=== PATIENT | male | born 1985 | race Caucasian/White ===

== ENCOUNTER 2017-12-08 13:29 | Emergency (ER) | payer OTHER ==
--- NOTE | 2017-12-08 14:59 | ED Physician Documentation ---
PD HPI OPHTHO - Stated complaint Stated Complaint: RT EYE PX - Chief complaint Chief Complaint: Heent - History obtained from History obtained from: Patient - History of Present Illness Timing - onset: Yesterday Timing - duration: Days (1) Timing - details: Abrupt onset, Still present Location: Right Quality / character: Aching, Throbbing Associated symptoms: Redness. No: Tearing, Discharge, Matting, FB sensation, Photophobia, Double vision, Decreased vision, Loss of vision, Headache Contributing factors: No: FB, UV light (welding etc) Similar symptoms before: Has not had sx before Recently seen: Not recently seen - Additional information Additional information: Previous Ortiz well 32-year-old male was at breakfast yesterday morning when he noticed a pain in his right eye he states I was quite sore and he has pain to looking especially down and inward. He feels the pain mostly in the superior portion of his orbit. He denies a foreign body sensation and he denies any known trauma to the area. He does have a subconjunctival hemorrhage which he states his been present since yesterday. He does not know of any trauma to his eye he does not typically rub his eyes a lot. Review of Systems Constitutional: denies: Fever, Chills Eyes: reports: Other (redness and pain). denies: Loss of vision, Decreased vision, Photophobia, Discharge, Irritation Ears: denies: Ear pain Nose: denies: Congestion, Reviewed and negative Throat: denies: Sore throat Cardiac: denies: Chest pain / pressure Respiratory: denies: Dyspnea, Cough GI: denies: Vomiting PD PAST MEDICAL HISTORY - Past Medical History Past Medical History: No - Past Surgical History Past Surgical History: No - Present Medications Home Medications: Ambulatory Orders Medication Instructions Recorded Confirmed Neomycin/Poly/Dex Ophth Drops 1 drops RIGHTEYE QID #1 bottle 12/08/17 [Maxitrol Ophth Drops] - Allergies Allergies/Adverse Reactions: Allergies Allergy/AdvReac Type Severity Reaction Status Date / Time No Known Drug Allergies Allergy Verified 12/08/17 13:40 - Social History Does the pt smoke?: Yes Smoking Status: Current every day smoker Does the pt drink ETOH?: Yes ETOH Use: Beer Does the pt have substance abuse?: No - Immunizations Immunizations are current?: Yes - POLST Patient has POLST: No PD ED PE NORMAL - Vitals Vital signs reviewed: Yes (hypertensive ) - General General: Alert and oriented X 3, No acute distress, Well developed/nourished - HEENT HEENT: Atraumatic, PERRL, EOMI, Other (There is a lateral subconjunctival hemorrhage and no blood in the anterior chamber and no distortion of the globe. Pressure is 19mm. There is no fluoscien uptake in the cornea and no obvious fb. ) - Neck Neck: Supple, no meningeal sign, No bony TTP - Respiratory Respiratory: No respiratory distress - Derm Derm: Normal color, Warm and dry, No rash - Extremities Extremities: No deformity, No edema - Neuro Neuro: No motor deficit, No sensory deficit Eye Opening: Spontaneous Motor: Obeys Commands Verbal: Oriented GCS Score: 15 - Psych Psych: Normal mood, Normal affect Results - Vitals Vitals: Vital Signs - 24 hr 12/08/17 13:37 Temperature 36.6 C Heart Rate 102 H Respiratory 14 Rate Blood Pressure 135/88 H O2 Saturation 99 Oxygen O2 Source Room air PD MEDICAL DECISION MAKING - ED course Complexity details: considered differential, d/w patient ED course: 32-year-old male with a subconjunctival hemorrhage on the right has a fair amount of pain associated with this and no specific findings on exam with the exception of the subconjunctival hemorrhage itself. The globe appears intact with normal pressure and no no blood in the anterior chamber. He is started on some Maxitrol ophthalmic drops and will follow-up with ophthalmology should he have worsening of symptoms. - Sepsis Event Vital Signs: Vital Signs - 24 hr 12/08/17 13:37 Temperature 36.6 C Heart Rate 102 H Respiratory 14 Rate Blood Pressure 135/88 H O2 Saturation 99 Oxygen O2 Source Room air Departure - Departure Disposition: 01 Home, Self Care Clinical Impression: Subconjunctival hemorrhage of right eye Condition: Stable Instructions: ED Eye Injury Subconj Hemorrhage Follow-Up: Dax John MD [Provider Admit Priv/Credential] - Prescriptions: Neomycin/Poly/Dex Ophth Drops [Maxitrol Ophth Drops] 1 drops RIGHTEYE QID #1 bottle
[2017-12-08] MEDS: PROPARACAINE 0.5% OPHTH DROPS 15 ML RIGHTEYE STA (15:09)
[2017-12-08 15:32] VITALS: BP 120/71
== END 2017-12-08 15:30 | disposition home or self-care (01) ==
LOC: ED 13:29
DX: H11.31 Conjunctival hemorrhage, right eye (principal); F17.200 Nicotine dependence, unspecified, uncomplicated
CPT/HCPCS: 99283; J3490

== ENCOUNTER 2023-10-17 22:12 | Outpatient (CLI) | payer OTHER | END 2023-10-17 23:59 | disposition critical access hospital (66) | LOC: EMS 22:12 | DX: S99.911A Unspecified injury of right ankle, initial encounter (principal); X50.9XXA Other and unspecified overexertion or strenuous movements or postures, initial encounter; Y93.01 Activity, walking, marching and hiking; Y92.007 Garden or yard of unspecified non-institutional (private) residence as the place of occurrence of the external cause | CPT/HCPCS: A0425; A0427 ==

== ENCOUNTER 2023-10-17 22:29 | Emergency (ER) | payer OTHER ==
[2023-10-17 22:42] VITALS: BP 147/83; O2SAT 96
--- NOTE | 2023-10-17 23:26 | XRAY Report ---
PROCEDURE: Ankle 3+V RT INDICATIONS: fall/pain TECHNIQUE: 3 views of the ankle were acquired. COMPARISON: None. FINDINGS: Bones: No fractures or dislocations. Ankle mortise is normally aligned. No suspicious bony lesions . Soft tissues: No tibiotalar joint effusion. Achilles tendon appears normal. IMPRESSION: No acute bony abnormality. Reviewed by: Edwin Bates MD on 10/17/2023 11:25 PM PDT Approved by: Edwin Bates MD on 10/17/2023 11:25 PM PDT Station ID: [id number]
--- NOTE | 2023-10-17 23:45 | ED Physician Documentation ---
PD HPI LOWER EXT INJURY - Stated complaint Stated Complaint: ANKLE INJURY - Chief complaint Chief Complaint: Ext Problem - History obtained from History obtained from: Patient - Additional information Additional information: Patient is a 38-year-old male without significant past medical history presenting for evaluation of right ankle pain. Patient states he slipped on grass outside as he was trying to scare off a deer and rolled his ankle. Denies hitting his head. Review of Systems Musculoskeletal: reports: Extremity pain Neurologic: denies: Head injury PD PAST MEDICAL HISTORY - Past Surgical History Past Surgical History: No - Present Medications Home Medications: Ambulatory Orders Medication Instructions Recorded Confirmed Oxycodone HCl/Acetaminophen 1 each PO Q6H PRN #8 tablet 10/17/23 [Percocet 5-325 mg Tablet] Propranolol [Inderal] 1 tab PO DAILY PM 10/17/23 10/17/23 - Allergies Allergies/Adverse Reactions: Allergies Allergy/AdvReac Type Severity Reaction Status Date / Time No Known Drug Allergies Allergy Verified 10/17/23 22:40 - Social History Does the pt smoke?: Yes Smoking Status: Current every day smoker Does the pt drink ETOH?: Yes Does the pt have substance abuse?: No - Immunizations Immunizations are current?: Yes - POLST Patient has POLST: No PD ED PE NORMAL - General General: Alert and oriented X 3, No acute distress, Well developed/nourished - HEENT HEENT: Atraumatic - Cardiac Cardiac: Strong equal pulses - Respiratory Respiratory: No respiratory distress - Derm Derm: Warm and dry - Extremities Extremities: Other (Tenderness to right medial and posterior ankle without any significant deformity.; Pain on range of motion, normal range of motion of right knee, no tenderness over foot/lower leg) - Neuro Neuro: Alert and oriented X 3, No motor deficit, No sensory deficit, Normal speech Results - Vitals Vitals: Vital Signs - 24 hr 10/17/23 22:35 Temperature 36 C L Heart Rate 107 H Respiratory 22 Rate Blood Pressure 147/83 H O2 Saturation 96 Oxygen O2 Source Room air PD Medical Decision Making - ED course Complexity details: reviewed results, d/w patient ED course: Patient is a 38-year-old male presenting for evaluation of right ankle pain after rolling it on wet grass. No head injury. Neurovascularly intact. X-ray which I reviewed shows no fracture or dislocation. Patient was placed into an Aircast and also given crutches. Instructed on need for close follow-up as well as concerning symptoms to return for. No pain more proximally in the affected extremity. Departure - Departure Disposition: 01 Home, Self Care Clinical Impression: Right ankle sprain Condition: Stable Instructions: ED Sprain Ankle Prescriptions: Oxycodone HCl/Acetaminophen [Percocet 5-325 mg Tablet] 1 each PO Q6H PRN #8 tablet PRN Reason: pain Comments: Your x-ray does not show a broken bone or a dislocation. You likely have an ankle sprain. We have given you an Aircast as well as crutches and I would recommend staying off the ankle as long as it is hurting to put weight on it. Please have close follow-up at [facility]. I have sent a small amount of narcotic pain medication to [facility] [place] Return to the ER with any worsening. I am prescribing a short course of narcotic pain medication for you. These are potentially dangerous and addictive medications that should be used carefully. These medications may constipate you. Take an [id number] stool softener (docusate) twice daily with plenty of water while taking these medications. If you go 24 hours without a bowel movement, take [id number] miralax, per package instructions. Do not drink or drive while taking these medications. If you received narcotic or sedating medications while in the emergency department, do not drive for 24 hours. Store this medication in a safe, secure place and out of reach of children. It is a violation of federal law to give or sell this medication to another person or to use in a manner other than prescribed. The ED will not refill narcotic prescriptions, including prescriptions lost or stolen. To dispose of unwanted medications: 1. [facility] at [address] in [place] has a medication drop box. They accept prescription medications (in pill form) Saturday through Saturday 9:00 a.m. to 5:00 p.m. 2. [facility] [employer] [facility] accepts prescription medications (in pill form only) for disposal year round. Call for more information. 3. Contact the [facility] for the next [facility] sponsored prescription drug collection event. , x7310, or [phone]; Note that many narcotic pain relievers also contain Tylenol/acetaminophen. Please ensure that your total dose of acetaminophen from all sources does not exceed 3 g (3000 mg) per day. Forms: PCP List Discharge Date/Time: 10/18/23 00:16
[2023-10-17] MEDS: oxyCODONE/ACET 5/325 Prepack 4 PO STA (23:59)
== END 2023-10-18 00:16 | disposition home or self-care (01) ==
LOC: EDSEX → EDUNIT# → ED 22:29
DX: S93.401A Sprain of unspecified ligament of right ankle, initial encounter (principal); X50.1XXA Overexertion from prolonged static or awkward postures, initial encounter; Z79.899 Other long term (current) drug therapy
CPT/HCPCS: 99283; 99284